=== PATIENT | male | born 1995 | race Hispanic/Latino ===

== ENCOUNTER 2018-01-05 18:45 | Emergency (ER) | payer SELFPAY ==
[~2018-01-05 18:45] MED LIST: ESOM40CA PO
[2018-01-05] MEDS ORDERED: IOHEXOL-350 75 ML VIAL IV ONE (19:36)
[2018-01-05] MEDS ORDERED: ACETAMINOPHEN 325 MG TAB ONE (19:40)
[2018-01-05] MEDS ORDERED: LEVOFLOXACIN 500 MG/D5W 100 ML 100 ML ONE (19:40)
[2018-01-05] MEDS ORDERED: ONDANSETRON HCL 4 MG/2 ML VIAL ONE (19:40)
[2018-01-05] MEDS ORDERED: FAMOTIDINE/PF 20 MG/2 ML VIAL IV ONE (19:41)
[2018-01-05] MEDS ORDERED: MORPHINE SULFATE 2 MG/ML 1ML SYG ONE ×2 (19:41→22:10)
[2018-01-05 20:14] LABS: BASOPHILS % (AUTO) 0.5 % (0.0-5.0); EOSINOPHILS % (AUTO) 0.3 % (0.0-8.0); HEMATOCRIT 46.2 % (42-54); LYMPHOCYTES % (AUTO) 15.1 % (21.0-51.0); MEAN CORPUSCULAR HEMOGLOBIN 27.8 pg (27.0-33.0); MEAN CORPUSCULAR HGB CONC 32.9 g/dL (32.0-36.0); MEAN CORPUSCULAR VOLUME 84.6 fL (79-99); MONOCYTES % (AUTO) 9.5 % (3.0-13.0); NEUTROPHILS % (AUTO) 74.6 % (40.0-77.0); PLATELET COUNT (AUTO) 150 K/uL (130-400); RED BLOOD CELL COUNT(AUTO) 5.46 MIL/uL (4.50-6.20); RED CELL DISTRIBUTION WIDTH 13.3 % (11.0-15.5); WHITE BLOOD COUNT (AUTO) 7.2 K/uL (4.8-10.8)
[2018-01-05 20:27] LABS: CARBON DIOXIDE 29 mmol/L (21-32); CHLORIDE 103 mmol/L (101-111); CREATININE 0.9 mg/dL (0.5-1.5); GLOMERULAR FILTR. RATE CALC 112 mL/min (>60); GLUCOSE,RANDOM 92 mg/dL (70-105); POTASSIUM 3.4 mmol/L (3.5-5.1); SODIUM SERUM 140 mmol/L (136-145); UREA NITROGEN, BLOOD 14 mg/dL (7-18)
[2018-01-05 20:29] LABS: INR 0.92 (0.85-1.15); PARTIAL THROMBOPLASTIN TIME 28.5 SEC (26.3-35.5); PROTHROMBIN TIME 9.7 SEC (9.6-11.6)
[2018-01-05 20:38] LABS: ALANINE AMINOTRANSFERASE 83 U/L (12-78); ASPARTATE AMINOTRANSFERASE 31 U/L (10-37); BILIRUBIN,TOTAL 0.5 mg/dL (0.2-1.0); CREATINE KINASE, TOTAL 112 U/L (21-232); MYOGLOBIN 37 ng/mL (10-92); TOTAL PROTEIN, SERUM 7.8 g/dL (6.0-8.3); TROPONIN I < 0.04 ng/mL (0.00-0.06)
[2018-01-05 20:38] LABS: APPEARANCE,URINE Clear (CLEAR); BILIRUBIN,URINE Negative (NEGATIVE); COLOR,URINE Dark Yellow (YELLOW); GLUCOSE, URINE (UA) Negative (NEGATIVE); KETONES,URINE Trace mg/dL (NEGATIVE); LEUKOCYTE ESTERASE ,URINE Trace (NEGATIVE); NITRATE,URINE Negative (NEGATIVE); OCCULT BLOOD,URINE Negative (NEGATIVE); PROTEIN,URINE Negative (NEGATIVE)
[2018-01-05 20:46] LABS: RBC,URINE 0-1 /HPF (0-1)
[2018-01-05 20:47] LABS: BACTERIA,URINE Rare /HPF (None Seen); MUCUS,URINE Few LPF (None Seen); SQUAMOUS EPITHELIAL CELL,UR Rare /HPF (0-2)
[2018-01-05] MEDS ORDERED: DICYCLOMINE HCL 20 MG TAB ONE (22:10)
== END 2018-01-05 22:38 | disposition home or self-care (01) ==
LOC: EDH 18:45
DX: K52.9 Noninfective gastroenteritis and colitis, unspecified (principal); K92.1 Melena; R50.9 Fever, unspecified; J45.909 Unspecified asthma, uncomplicated; K21.9 Gastro-esophageal reflux disease without esophagitis; E78.5 Hyperlipidemia, unspecified; Z90.49 Acquired absence of other specified parts of digestive tract; Z87.891 Personal history of nicotine dependence
CPT/HCPCS: 36415; 74176; 80053; 81001; 82550; 83605; 83690; 83874; 84484; 85025; 85610; 85730; 87040; 87046; 87088; 93005; 96365; 96366; 96375; 96376; 99284; J1956; J2405; J3490; Q9967

== ENCOUNTER → 2024-10-28 | Emergency (ER) | payer SELFPAY ==
[~2024-10-28] VITALS: Ht 172.7 cm; Wt 87.8 kg
[~2024-10-28] MED LIST changes: +IPRA4AER IH; +PRED20TA3 PO
--- NOTE | 2024-10-28 05:35 | ERN ---
ED Note History of Present Illness Stated Complaint: BACK PAIN, SOB Chief Complaint: Shortness of Breath Time Seen by MD: 04:34 Dictation: This is a 29-year-old male who presented to the emergency room with his partner complaining of severe back pain when he takes a deep breath and difficulty catching his breath. 30 minutes prior to the presentation this got worse. He stated that he recently drove on a road trip to [place] and back. During the drive patient admitted to vaping E cigarette more than usual. He also r eported he had a few beers last night. While in the triage patient apparently began hyperventilating and became extremely anxious. But during my evaluation he was hyperverbal and definitely appeared somewhat anxious. No respiratory distress. Denied any cough fevers or hemoptysis. Temperature 98 pulse 144 respiratory rate 26 blood pressure 135/96 with a pulse oximetry of 99% on room air Patient has a history of asthma and Crohn's disease since he was a teenager. He reported that he had a colonoscopy liver biopsy and he was followed at [facility]. I do not have any access to the old medical records for review at this time. He also had appendectomy surgery Allergies: Coded Allergies: No Known Allergies (Verified Allergy, Severe, 08/20/14) Home Meds Active Scripts Ipratropium/Albuterol Sulfate (Combivent Respimat Inhal [place]) 20 Mcg-100 Mcg/Actuation Aer.w.adap, 2 PUFF IH TID, #4 GM 0 Refills Prov:LEX SANDOVAL MD 10/28/24 Prednisone (Prednisone) 20 Mg Tablet, 1 TAB PO AD for 6 Days, #14 TAB 0 Refills TAKE 1 TAB BY MOUTH THREE TIMES PER DAY X3 DAYS, THEN TAKE 1 TAB BY MOUTH TWICE A DAY X2 DAYS, THEN TAKE 1 TAB BY MOUTH ONCE A DAY X1 DAY. Prov:LEX SANDOVAL MD 10/28/24 Esomeprazole Magnesium (Nexium) 40 Mg Capsule., 40 MG PO BID, #60 CAP Prov:CHRISTIANO LIM TECH[employer]ICAL PROGRAMS MANAGER 09/12/17 Past Medical History Past Medical History: Asthma, Other Additional Past Medical Hx: CROHNS Surgical History: Appendectomy Family History: Negative Social History: Smokers, ETOH RN Note Reviewed/Agreed w/PFSH: Yes Review of System Dictation Constitutional: Negative for fever,chills, and weight loss Eyes: Negative for injury, pain,redness, and discharge ENT: Negative for injury,pain or swelling Cardiovascular: Negative for chest pain, palpitations, and edema Respiratory: Positive for shortness of breath, cough, and wheezing, positive for bilateral flank and lower chest pain. Abdomen/GI: Negative for abdominal pain, nausea, vomiting, diarrhea, and constip ation Back: Negative for injury and pain : Negative for injury, bleeding and discharge MS/Extremity: Negative for injury and deformity Skin: Negative for rash, and discoloration Neuro: Negative for headache, weakness, numbness, tingling, and seizure Psych: Negative for suicide ideation, homicidal ideation, and hallucinations Initial Vital Sign VS Vital Signs Date Time Temp Pulse Resp B/P (MAP) Pulse Ox O2 Delivery O2 Flow Rate FiO2 10/28/24 04:29 98.1 144 26 135/96 99 Room Air 10/28/24 04:46 2 28 Physical Exam Dictation General: awake, alert, NAD much calmer Head/Face: Normocephalic, atraumatic Eyes: PERRL, EOMI, vision at baseline ENT: oral cavity clear, TMs clear, no signs of infection Neck: Trachea midline, supple, no nuchal rigidity Cardiovascular: Tachycardic normal S1/S2, No MRGs, no JVD Respiratory: Prolonged expiratory phase, no respiratory distress, No rales or wheezes the location of the pain is mostly posterior lower ribcage and flank area Abdomen: Soft, non-tender, non-distended, normal bowel sounds, no guarding or rebound. Skin: Warm, dry, normal turgor, no rash MS/Extremity: Pulses equal, no cyanosis, neurovascular intact, FROM Neuro: COAx4, GCS 15, strength 5/5, CN 2-12 intact, normal cerebellar exam, normal gait, Psych: Normal behavior, mood, and affect normal Extremities-trace edema without any palpable cords, Homans sign is negative Results (Laboratory/Radiology) Labs Reviewed?: Yes X-RAY Comment: REASON: dyspnea ORDERING PHYSICIAN: LEX SANDOVAL MD PROCEDURE: CXR1VW - CHEST 1VW EXAM: CR Chest, 1 view CLINICAL HISTORY: Dyspnea. COMPARISON: Chest radiograph dated 08/24/2014. FINDINGS: Mild bibasilar atelectasis, more pronounced on the left side. Questionable hilar vessel prominence versus hilar lymphadenopathy. No pleural effusion or pneumothorax. The cardiomediastinal silhouette is within normal limits. No acute osseous abnormality. IMPRESSION: Mild bibasilar atelectasis, more pronounced on the left side. Questionable hilar vessel prominence versus hilar lymphadenopathy. Recommend a contrast-enhanced CT chest for further evaluation. The findings are new compared to the previous chest radiograph dated 08/24/2014. /[place] DICTATED BY: LIBIA JOHNSON Jr., MD DATE: 10/28/24645 ELECTRONICALLY SIGNED BY: LIBIA JOHNSON Jr., MD DATE: 10/28/24645 ED Course ED Course Orders Procedure Category Date Status Time Chest 1vw RAD 10/28/24 Resulted 04:46 Urinalysis Profile LAB 10/28/24 Logged 04:46 Drug Screen Urine LAB 10/28/24 Logged 04:46 Morphine 4mg Syg PHA 10/28/24 Complete (Morphine 4mg Syg) 05:30 Ondansetron 4mg Inj PHA 10/28/24 Complete (Zofran 4mg Inj) 05:30 0.9%Nacl 1000ml (Ns PHA 10/28/24 Complete 1000ml) 05:30 Methylprednisolone PHA 10/28/24 Complete Succ 125mg (Solu-Medr 05:30 Ipratropium/Albuterol PHA 10/28/24 Complete Neb (Duoneb) 05:30 Alprazolam 0.5mg PHA 10/28/24 Transmitted (Xanax 0.5mg) 06:30 Current Medications Medications (Trade) Dose Ordered Sig/Radha Route PRN Reason Start Time Stop Time Status Last Admin Dose Admin Albuterol (DUOneb) 1 UDVIAL ONCE ONCE IH 10/28/24 05:30 10/28/24 05:31 DC 10/28/24 05:48 Methylprednisolone Sodium Succinate (Solu-medROL 125MG) 80 mg ONCE ONCE IVP 10/28/24 05:30 10/28/24 05:31 DC 10/28/24 05:38 Morphine Sulfate (morPHINE 4MG SYG) 4 mg ONCE ONCE IVP 10/28/24 05:30 10/28/24 05:31 DC 10/28/24 05:39 Ondansetron HCl (zoFRAN 4MG INJ) 4 mg ONCE ONCE IVP 10/28/24 05:30 10/28/24 05:31 DC 10/28/24 05:39 Sodium Chloride 1,000 ml @ 0 mls/hr ONCE ONCE IV 10/28/24 05:30 10/28/24 05:31 DC 10/28/24 05:38 Vital Signs Date Time Temp Pulse Resp B/P (MAP) Pulse Ox O2 Delivery O2 Flow Rate FiO2 10/28/24 05:48 107 18 10/28/24 04:46 99.0 121 24 119/77 98 Nasal Cannula* 2 28 10/28/24 04:29 98.1 144 26 135/96 99 Room Air We will perform diagnostic labs, advanced imaging and administer medications according to the patient's complaint. Once the results are available, will review and personally interpreted the labs to rule out any acute life- threatening emergency the trach require immediate intervention and treatment. I will then re-evaluate the patient after treatment and diagnostic exams have return to determine whether the patient requires any further testing, can safely be discharged home or need further admission to hospital for additional treatment and evaluation. Plan to discharge with a trial of steroid and an inhaler Medical Decision Making MDM Differential diagnosis-pleurisy, asthma exacerbation, acute lung injury from vaping, musculoskeletal pain This is a 29-year-old male who presented to the emergency room with his partner complaining of severe back pain when he takes a deep breath and difficulty catc hedy his breath. 30 minutes prior to the presentation this got worse. He stated that he recently drove on a road trip to [place] and back. During the drive patient admitted to vaping E cigarette more than usual. He also reported he had a few beers last night. While in the triage patient apparently began hyperventilating and became extremely anxious. But during my evaluation he was hyperverbal and definitely appeared somewhat anxious. No respiratory distress. Denied any cough fevers or hemoptysis. Temperature 98 pulse 144 respiratory rate 26 blood pressure 135/96 with a pulse oximetry of 99% on room air Patient has a history of asthma and Crohn's disease since he was a teenager. He reported that he had a colonoscopy liver biopsy and he was followed at [facility]. I do not have any access to the old medical records for review at this time. He also had appendectomy surgery We will perform diagnostic labs, advanced imaging and administer medications according to the patient's complaint. Once the results are available, will review and personally interpreted the labs to rule out any acute life- threatening emergency the trach require immediate intervention and treatment. I will then re-evaluate the patient after treatment and diagnostic exams have return to determine whether the patient requires any further testing, can safely be discharged home or need further admission to hospital for additional treatment and evaluation. 6:21 a.m. patient responded very well to symptomatic treatment. Also gave steroids and a bronchodilator treatment. Explained that the chest x-ray had a poor inspiratory effort and hilar areas appear prominent. It should get a repeat chest x-ray in a few weeks to assess the perihilar areas. I went over the chest x-ray findings. Patient was unable to provide any urine sample. Rationale: Tests considered and ordered secondary to shared decision making include: Previous outside records reviewed: Old ER visits. Risk of complication and/or morbidity or mortality of patient management: None Medications-Per medication reconciliation Need for hospitalization: Patient does not meet criteria for hospitalization. Need for emergency major/minor surgery: No There are no social concerns with this patient. Prescription drug management Prescriptions will include symptomatic care Patient's prior external medical records from other ER visits were reviewed by me as indicated. Prior testing and results from previous visits were reviewed. Prior tests were taken into account with medical decision making and resource utilization, independent historian/historians were used to obtain complete medical history. I independently interpreted the test that were performed, results were reviewed by me and considered findings on radiology if ordered. Medical management and examination interpretation discussions were had by me with other qualified healthcare professionals as indicated for the patient's care. Problem List Problem List: (1) Acute lung injury associated with vaping (2) Nicotine dependence (3) Asthma (4) History of Crohn's disease DX & DISP Disposition: Discharge Departure Impression: Primary Impression: Acute lung injury associated with vaping Additional Impressions: Asthma, Nicotine dependence, History of Crohn's disease Condition: Stable Scripts Ipratropium/Albuterol Sulfate (Combivent Respimat Inhal [place]) 20 Mcg-100 Mcg/Actuation Aer.w.adap 2 PUFF IH TID, #4 GM 0 Refills Prov: THOPU,LEX R MD 10/28/24 Prednisone (Prednisone) 20 Mg Tablet 1 TAB PO AD for 6 Days, #14 TAB 0 Refills TAKE 1 TAB BY MOUTH THREE TIMES PER DAY X3 DAYS, THEN TAKE 1 TAB BY MOUTH TWICE A DAY X2 DAYS, THEN TAKE 1 TAB BY MOUTH ONCE A DAY X1 DAY. Prov: LEX SANDOVAL MD 10/28/24 Additional Instructions: Patient and the caregiver have been informed of all the diagnostic tests and the imaging conducted during the today's visit to the emergency room and has verbalized understanding of the results I have personally reviewed and interpreted all diagnostic exams performed here in the ER today as well as the vital signs documented by the nursing staff. The patient is now being discharged to home and should follow up with the primary care physician or the specialist as directed by the ER staff. Follow-up with primary care provider in 1 to 2 days. Take medications as directed here in the emergency room. Okay to continue home medications unless otherwise discussed during your visit in the emergency room today. Return to your nearest emergency room if symptoms worsen or if there is no improvement. Call 911 if you need immediate assistance. Take Tylenol or Motrin [id number] as needed and if no contraindications are present. Increase oral hydration. A wound culture or urine culture was ordered here in the emergency room department please follow-up with primary care provider and advise them to get repeat ports from our facility. If you had any Adiel wrap/splints that were applied here, please do not remove them until you see your primary care or specialty. Referrals: SELF,REFERRAL (PCP) LEX SANDOVAL MD Oct 28, 2024 05:35
[2024-10-28] MEDS: 0.9%NACL 1000ML 1,000 ML IV ONE (05:38)
--- NOTE | 2024-10-28 05:47 | HMCIMG ---
EXAM: CR Chest, 1 view CLINICAL HISTORY: Dyspnea. COMPARISON: Chest radiograph dated 08/24/2014. FINDINGS: Mild bibasilar atelectasis, more pronounced on the left side. Questionable hilar vessel prominence versus hilar lymphadenopathy. No pleural effusion or pneumothorax. The cardiomediastinal silhouette is within normal limits. No acute osseous abnormality. IMPRESSION: Mild bibasilar atelectasis, more pronounced on the left side. Questionable hilar vessel prominence versus hilar lymphadenopathy. Recommend a contrast-enhanced CT chest for further evaluation. The findings are new compared to the previous chest radiograph dated 08/24/2014. /[place]
[2024-10-28 05:48] VITALS: PULSE 107; RESP 18
[2024-10-28 06:41] VITALS: BP 120/66; PULSE 98; RESP 18; TEMP 99; O2SAT 99
[2024-10-28 09:07] LABS: APPEARANCE,URINE CLEAR (CLEAR); GLUCOSE, URINE (UA) NEGATIVE (NEGATIVE); LEUKOCYTE ESTERASE ,URINE NEGATIVE Leu/uL (NEGATIVE); NITRATE,URINE NEGATIVE (NEGATIVE); OCCULT BLOOD,URINE NEGATIVE (NEGATIVE)
[2024-10-28 09:09] LABS: ADD UA MICROSCOPIC NO
[2024-10-28 09:15] LABS: AMPHET/METH SCREEN,URINE NEGATIVE (NEGATIVE); BARBITURATE SCREEN, URINE NEGATIVE (NEGATIVE); CANNABINOID SCREEN,URINE POSITIVE (NEGATIVE); COCAINE SCREEN,URINE NEGATIVE (NEGATIVE)
== END ==
LOC: EDH 04:27
DX: U07.0 Vaping-related disorder (principal); J45.909 Unspecified asthma, uncomplicated; F17.200 Nicotine dependence, unspecified, uncomplicated; Z90.49 Acquired absence of other specified parts of digestive tract; Z79.899 Other long term (current) drug therapy
CPT/HCPCS: 99284; 96374; 96375; 71045; 80305; 94640; 81003; J2919; J7030; J2405; J2270